=== PATIENT | female | born 1990 | race American Indian/Alaskan Native ===

== ENCOUNTER 2017-10-22 17:52 | Emergency (ER) | payer BC ==
[2017-10-22] MEDS ORDERED: DECADRON IM ONE (19:18)
[2017-10-22] MEDS ORDERED: REGLAN PO ONE (19:18)
[2017-10-22] MEDS ORDERED: BANOPHEN PO ONE (19:18)
[2017-10-22] MEDS ORDERED: ULTRAM PO ONE (19:18)
--- NOTE | 2017-10-22 19:40 | Emergency Department Report ---
ED Headache HPI - General Chief Complaint: Headache Stated Complaint: SEVERE MIGRAINE Time Seen by Provider: 10/22/17 19:15 - History of Present Illness Initial Comments: There is a 26-year-old FINNISH FEMALE WITH A HISTORY OF MIGRAINE HEADACHE visual headache management this Topamax 200 mg however out of medication patient state headache and usual location usual intensity and duration this headache started at work today with appears of photophobia and nausea vomiting headache 5 /10 at this time there is no decreased vision patient is tolerating by mouth patient Kirk to ED there is no dizziness or lightheadedness no neck pain Timing/Duration: 4-6 hours Quality: moderate, achy, sharp Head Injury Location: frontal Recent Head Trauma: no recent headache/trauma, frequent headaches, chronic headaches Associated Symptoms: nausea/vomiting. denies: confusion, fatigue, facial pain, fever/chills, flushing, loss of consciousness, nasal congestion, nasal drainage , numbness in legs/feet, rash, seizures, sinus infection, stiff neck, vision changes, weakness Allergies/Adverse Reactions: Allergies sulfamethoxazole [From Bactrim] Allergy (Verified 10/22/17 18:00) Unknown trimethoprim [From Bactrim] Allergy (Verified 10/22/17 18:00) Unknown butorphanol [From Stadol] Adverse Reaction (Verified 10/22/17 18:00) Unknown Home Medications: Ambulatory Orders Acetaminophen [Tylenol Extra Strength] 1,000 mg PO QID PRN #60 tablet 10/22/17 Amitriptyline [Elavil] 25 mg PO QHS #30 tab 10/22/17 Metoclopramide [Reglan] 10 mg PO ACHS #30 tablet 10/22/17 diphenhydrAMINE [Benadryl CAP] 25 mg PO Q6HR PRN #30 capsule 10/22/17 ED Review of Systems ROS: Stated complaint: SEVERE MIGRAINE Other details as noted in HPI Constitutional: denies: chills, fever Eyes: denies: eye pain, eye discharge, vision change ENT: denies: ear pain, throat pain Respiratory: denies: cough, shortness of breath, wheezing Cardiovascular: denies: chest pain, palpitations Endocrine: no symptoms reported Gastrointestinal: denies: abdominal pain, nausea, diarrhea Genitourinary: denies: urgency, dysuria, discharge Musculoskeletal: back pain Skin: denies: rash, lesions Neurological: headache. denies: weakness, numbness, paresthesias, confusion, abnormal gait, vertigo Psychiatric: denies: anxiety, depression Hematological/Lymphatic: as per HPI ED Past Medical Hx - Past Medical History Previous Medical History?: No Hx Asthma: Yes - Social History Smoking Status: Never Smoker - Medications Home Medications: Home Medications Medication Instructions Recorded Confirmed Last Taken Type Acetaminophen [Tylenol Extra 1,000 mg PO QID PRN #60 tablet 10/22/17 Unknown Rx Strength] Amitriptyline [Elavil] 25 mg PO QHS #30 tab 10/22/17 Unknown Rx Metoclopramide [Reglan] 10 mg PO ACHS #30 tablet 10/22/17 Unknown Rx diphenhydrAMINE [Benadryl CAP] 25 mg PO Q6HR PRN #30 capsule 10/22/17 Unknown Rx ED Physical Exam - General Limitations: No Limitations General appearance: alert, in no apparent distress - Head Head exam: Present: atraumatic, normocephalic, normal inspection - Eye Eye exam: Present: normal appearance, PERRL, EOMI. Absent: scleral icterus, conjunctival injection, periorbital swelling, periorbital tenderness Pupils: Present: normal accommodation - ENT ENT exam: Present: normal orophraynx, mucous membranes moist, TM's normal bilaterally, normal external ear exam - Neck Neck exam: Present: normal inspection, full ROM. Absent: tenderness, meningismus, lymphadenopathy, thyromegaly - Expanded Neck Exam Expanded Neck exam: Absent: tenderness, midline deformity, anterior neck swelling, thyroid mass, carotid bruit, tracheal deviation - Respiratory Respiratory exam: Present: normal lung sounds bilaterally. Absent: respiratory distress, wheezes, rhonchi, stridor, chest wall tenderness - Cardiovascular Cardiovascular Exam: Present: regular rate, normal rhythm. Absent: systolic murmur, diastolic murmur, rubs, gallop - GI/Abdominal GI/Abdominal exam: Present: soft, normal bowel sounds. Absent: distended, tenderness, guarding, rebound, rigid, organomegaly, mass, bruit, pulsatile mass , hernia - Rectal Rectal exam: Present: deferred - Extremities Exam Extremities exam: Present: normal inspection, full ROM. Absent: tenderness - Back Exam Back exam: Present: normal inspection, full ROM. Absent: tenderness - Neurological Exam Neurological exam: Present: alert, oriented X3, CN II-XII intact, normal gait, reflexes normal. Absent: motor sensory deficit - Expanded Neurological Exam Expanded Patient oriented to: Present: person, place, time Speech: Present: fluid speech Cranial nerves: EOM's Intact: Normal, Gag Reflex: Normal, Tongue Deviation: Normal, Nystagmus: Normal, Facial Sensation: Normal, Facial Palsy with Forehead Movement: Normal, Facial Palsy without Forehead Movement: Normal Cerebellar function: Finger to Nose: Normal, Heel to Castro: Normal, Romberg: Normal Upper motor neuron: Jayme Neglect: Normal, Pronator Drift: Normal, Babinski Sign : Normal, Sensory Extinction: Normal Sensory exam: Upper Extremity Light Touch: Normal, Upper Extremity Pin Prick: Normal, Upper Extremity Temperature: Normal, UE 2 Point Discrimination: Normal, Lower Extremity Light Touch: Normal, Lower Extremity Pin Prick: Normal, Lower Extremity Temperature: Normal, LE 2 Point Discrimination: Normal Motor strength exam: RUE: 5, LUE: 5, RLE: 5, LLE: 5 DTR: bicep (R): 2+, bicep (L): 2+, tricep (R): 2+, tricep (L): 2+, knee (R): 2+ , knee (L): 2+, ankle (R): 2+, ankle (L): 2+ Best Eye Response ([place]): (4) open spontaneously Best Motor Response ([place]): (6) obeys commands Best Verbal Response ([place]): (5) oriented [place] Total: 15 - Psychiatric Psychiatric exam: Present: normal affect - Skin Skin exam: Present: warm ED Course Vital Signs 10/22/17 17:57 Temperature 98.3 F Pulse Rate 94 H Respiratory 16 Rate Blood Pressure 131/75 O2 Sat by Pulse 100 Oximetry ED Medical Decision Making - Medical Decision Making This is patient's normal migraine headache pain is improved with medications given in ED plan DC the same plan refill amitriptyline S patient was prescribed amitriptyline at last PCP visit referred to [facility] for affiliation and follow-up treatment patient verbalizes understanding and agreement with discharge plan for DC to home in stable condition at this time headache is 2/10 patient is ambulatory a/o x 3 with no acute distress Critical care attestation.: If time is entered above; I have spent that time in minutes in the direct care of this critically ill patient, excluding procedure time. ED Disposition Clinical Impression: Headache Qualifiers: Headache type: unspecified Headache chronicity pattern: acute headache Intractability: not intractable Qualified Code(s): R51 - Headache Disposition: TO HOME OR SELFCARE Is pt being admited?: No Does the pt Need Aspirin: No Condition: Good Instructions: Acute Headache (ED) Prescriptions: Amitriptyline [Elavil] 25 mg PO QHS #30 tab Acetaminophen [Tylenol Extra Strength] 1,000 mg PO QID PRN #60 tablet PRN Reason: Headache diphenhydrAMINE [Benadryl CAP] 25 mg PO Q6HR PRN #30 capsule PRN Reason: Headache Metoclopramide [Reglan] 10 mg PO ACHS #30 tablet Referrals: PRIMARY CARE, [Primary Care Provider] - 3-5 Days [facility] [Outside] - 3-5 Days Time of Disposition: 19:52
[2017-10-22 20:34] VITALS: BP 130/73
== END 2017-10-22 20:34 | disposition home or self-care (01) ==
LOC: ED 17:52
DX: R51 Headache (principal); J45.909 Unspecified asthma, uncomplicated
CPT/HCPCS: 96372; 99282; J1100; Q0163

== ENCOUNTER 2017-12-27 10:34 | Emergency (ER) | payer BC ==
[2017-12-27 10:46] VITALS: BP 129/77
[2017-12-27] MEDS ORDERED: TORADOL IV ONE (12:47)
[2017-12-27] MEDS ORDERED: IMITREX SUB-Q ONE (12:47)
[2017-12-27] MEDS ORDERED: ZOFRAN IV ONE (12:47)
[2017-12-27] MEDS ORDERED: DECADRON IV ONE (12:47)
--- NOTE | 2017-12-27 12:52 | Emergency Department Report ---
ED Headache HPI - General Chief Complaint: Extremity Injury, Upper Stated Complaint: SEVERE MIGRAINE Time Seen by Provider: 12/27/17 12:46 Source: patient - History of Present Illness Initial Comments: Mrs. Hendrickson is 27 yo female who presents with migraine headaches. She has history of migraine headaches. She has recently moved from [place]. She is followed by a migraine specialist there. She did not have a lot of sleep this weekend. She was celebrating her birthday. She feels that this may have triggered her headache. She was prescribed amitriptyline on previous ED visit 2 months ago. Amitriptyline did not provide any relief. Gradual onset of global throbbing headache. Worse with light and sound. Positive nausea. Headache is typical of migraine for patient. She works at a [employer]. She lives with her . Last menstrual period within the last 2 months. Timing/Duration: 24 hours Quality: severe Head Injury Location: global Recent Head Trauma: frequent headaches, chronic headaches Modifying Factors: improves with: exposure to light Allergies/Adverse Reactions: Allergies sulfamethoxazole [From Bactrim] Allergy (Verified 12/27/17 10:46) Unknown trimethoprim [From Bactrim] Allergy (Verified 12/27/17 10:46) Unknown butorphanol [From Stadol] Adverse Reaction (Verified 12/27/17 10:46) Unknown Home Medications: Ambulatory Orders Acetaminophen [Tylenol Extra Strength] 1,000 mg PO QID PRN #60 tablet 10/22/17 Amitriptyline [Elavil] 25 mg PO QHS #30 tab 10/22/17 Metoclopramide [Reglan] 10 mg PO ACHS #30 tablet 10/22/17 diphenhydrAMINE [Benadryl CAP] 25 mg PO Q6HR PRN #30 capsule 10/22/17 SUMAtriptan SUCCINATE [Imitrex] 25 mg PO QDAY PRN #10 tablet 12/27/17 ED Review of Systems ROS: Stated complaint: SEVERE MIGRAINE Other details as noted in HPI Comment: All other systems reviewed and negative Constitutional: denies: fever, malaise Respiratory: denies: cough Cardiovascular: denies: chest pain ED Past Medical Hx - Past Medical History Hx Headaches / Migraines: Yes Hx Asthma: Yes - Surgical History Past Surgical History?: Yes Hx Appendectomy: Yes - Social History Smoking Status: Never Smoker Substance Use Type: Alcohol - Medications Home Medications: Home Medications Medication Instructions Recorded Confirmed Last Taken Type Acetaminophen [Tylenol Extra 1,000 mg PO QID PRN #60 tablet 10/22/17 Unknown Rx Strength] Amitriptyline [Elavil] 25 mg PO QHS #30 tab 10/22/17 Unknown Rx Metoclopramide [Reglan] 10 mg PO ACHS #30 tablet 10/22/17 Unknown Rx diphenhydrAMINE [Benadryl CAP] 25 mg PO Q6HR PRN #30 capsule 10/22/17 Unknown Rx SUMAtriptan SUCCINATE [Imitrex] 25 mg PO QDAY PRN #10 tablet 12/27/17 Unknown Rx ED Physical Exam - General Limitations: No Limitations General appearance: alert, in no apparent distress - Head Head exam: Present: atraumatic, normocephalic - Eye Eye exam: Present: normal appearance - ENT ENT exam: Present: mucous membranes moist - Neck Neck exam: Present: normal inspection. Absent: tenderness, meningismus - Respiratory Respiratory exam: Present: normal lung sounds bilaterally. Absent: respiratory distress, wheezes, rhonchi - Cardiovascular Cardiovascular Exam: Present: regular rate, normal rhythm, normal heart sounds. Absent: systolic murmur, diastolic murmur, rubs, gallop - GI/Abdominal GI/Abdominal exam: Present: soft, normal bowel sounds. Absent: distended, tenderness, guarding, rebound - Extremities Exam Extremities exam: Present: normal inspection - Back Exam Back exam: Present: normal inspection - Neurological Exam Neurological exam: Present: alert, oriented X3 - Psychiatric Psychiatric exam: Present: normal affect, normal mood - Skin Skin exam: Present: warm, dry, intact, normal color. Absent: rash ED Course Vital Signs 12/27/17 12/27/17 10:43 12:59 Temperature 98.4 F Pulse Rate 89 Respiratory 16 16 Rate Blood Pressure 129/77 O2 Sat by Pulse 100 Oximetry ED Medical Decision Making - Medical Decision Making Mrs. Hendrickson presents with migraine headache typical for patient. She received analgesia in the ED. Headache did greatly improve. I prescribed Imitrex. Critical care attestation.: If time is entered above; I have spent that time in minutes in the direct care of this critically ill patient, excluding procedure time. ED Disposition Clinical Impression: Migraine headache Disposition: - TO HOME OR SELFCARE Is pt being admited?: No Does the pt Need Aspirin: No Condition: Stable Instructions: Migraine Headache (ED) Prescriptions: SUMAtriptan SUCCINATE [Imitrex] 25 mg PO QDAY PRN #10 tablet PRN Reason: Headache Referrals: [facility] [Outside] - 3-5 Days Forms: Work/School Release Form(ED) Time of Disposition: 14:20
== END 2017-12-27 14:32 | disposition home or self-care (01) ==
LOC: ED 10:34
DX: G43.909 Migraine, unspecified, not intractable, without status migrainosus (principal); J45.909 Unspecified asthma, uncomplicated; Z90.49 Acquired absence of other specified parts of digestive tract; Z88.2 Allergy status to sulfonamides; Z88.8 Allergy status to other drugs, medicaments and biological substances
CPT/HCPCS: 96372; 96374; 96375; 99282; J1100; J1885; J2405; J3030

== ENCOUNTER 2018-02-07 16:38 | Emergency (ER) | payer BC, OTHER ==
[2018-02-07 16:53] VITALS: BP 126/83
[2018-02-07] MEDS ORDERED: MOTRIN PO ONE (17:55)
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
[2018-02-07] MEDS ORDERED: TYLENOL #3 PO ONE (19:43)
--- NOTE | 2018-02-07 19:59 | XRay Report ---
FINAL REPORT EXAM: XR SPINE CERVICAL 2-3V HISTORY: neck pain TECHNIQUE: Cervical spine five views PRIORS: None. FINDINGS: Vertebral bodies demonstrate normal height and alignment. The disk spaces are within normal limits. The facet joints demonstrate normal alignment. The spinous processes are intact. Craniocervical junction is unremarkable. C1 and C2 are intact. IMPRESSION: Negative cervical spine series.
== END 2018-02-07 20:10 | disposition home or self-care (01) ==
LOC: ED 16:38
DX: S13.4XXA Sprain of ligaments of cervical spine, initial encounter (principal); V89.2XXA Person injured in unspecified motor-vehicle accident, traffic, initial encounter; Y93.89 Activity, other specified; Y92.488 Other paved roadways as the place of occurrence of the external cause; Y99.8 Other external cause status
CPT/HCPCS: 72040; 99283

== ENCOUNTER 2018-05-18 17:54 | Emergency (ER) | payer SELFPAY ==
[2018-05-18 18:28] VITALS: BP 112/60
== END 2018-05-18 21:50 | disposition left against medical advice (07) ==
LOC: ED 17:54
DX: R11.10 Vomiting, unspecified (principal); Z53.21 Procedure and treatment not carried out due to patient leaving prior to being seen by health care provider

== ENCOUNTER 2018-08-26 22:00 | Emergency (ER) | payer SELFPAY | END 2018-08-26 22:44 | disposition left against medical advice (07) | LOC: ED 22:00 | DX: G43.909 Migraine, unspecified, not intractable, without status migrainosus (principal); Z53.21 Procedure and treatment not carried out due to patient leaving prior to being seen by health care provider ==

== ENCOUNTER 2021-03-26 12:55 | Emergency (ER) | payer SELFPAY ==
[2021-03-26] MEDS ORDERED: MORPHINE 4 MG/1 ML INJ IV ONE ×2 (14:32→16:25)
[2021-03-26] MEDS ORDERED: ONDANSETRON 4 MG/2 ML INJ IV ONE (14:32)
[2021-03-26 14:51] LABS: Basophils % (Auto) 0.2 % (0.0-1.8); Eosinophils # (Auto) 0.1 K/mm3 (0.0-0.4); Eosinophils % (Auto) 0.8 % (0.0-4.3); Hematocrit 34.9 % (30.3-42.9); Hemoglobin 10.9 gm/dl (10.1-14.3); Lymphocytes # (Auto) 2.1 K/mm3 (1.2-5.4); Lymphocytes % (Auto) 17.3 % (13.4-35.0); Mean Corpuscular HGB Conc 31 % (30-34); Mean Corpuscular Volume 86 fl (79-97); Monocytes # (Auto) 0.7 K/mm3 (0.0-0.8); Monocytes % (Auto) 5.7 % (0.0-7.3); Platelet Count 388 K/mm3 (140-440); Red Blood Count 4.06 M/mm3 (3.65-5.03); Red Cell Distribution Width 14.5 % (13.2-15.2)
--- NOTE | 2021-03-26 14:59 | Event Note ---
ED Screening Note Date of service: 03/26/21 Time: 14:58 ED Screening Note: Patient complains of sudden onset of severe right lower abdominal pain History of endometriosis, however states this does not feel like her endometriosis Pain is a 10/10 in severity Also states vaginal bleeding without discharge or dyspareunia No dysuria/hematuria Also has history of asthma This initial assessment/diagnostic orders/clinical plan/treatment(s) is/are subject to change based on patients health status, clinical progression and re- assessment by fellow clinical providers in the ED. Further treatment and workup at subsequent clinical providers discretion. Patient/guardian urged not to elope from the ED as their condition may be serious if not clinically assessed and managed. Initial orders include: Labs Meds CT
[2021-03-26 15:13] LABS: Alanine Aminotransferase 8 units/L (7-56); Albumin 4.1 g/dL (3.9-5); Blood Urea Nitrogen 5 mg/dL (7-17); Calcium 8.8 mg/dL (8.4-10.2); Hemolysis Index 3
[2021-03-26 15:16] LABS: BUN/Creatinine Ratio 7; Bilirubin,Direct < 0.2 mg/dL (0-0.2)
[2021-03-26 16:06] LABS: Bilirubin,Urine NEG (Negative); Blood,Urine LG (Negative); Color,Urine Red (Yellow); Mucus,Urine FEW /HPF; Urobilinogen,Urine < 2.0 mg/dL (<2.0)
[2021-03-26 16:07] LABS: RBC,Urine > 182.0 /HPF (0.0-6.0)
--- NOTE | 2021-03-26 17:08 | Cat Scan Report ---
CT abdomen pelvis w con INDICATION: acute lower abd pain, worse in RLQ 100 ml omni 300 . TECHNIQUE: All CT scans at this location are performed using CT dose reduction for ALARA by means of automated e xposure control. COMPARISON: None available. FINDINGS: The visualized lung bases are clear. The liver, gallbladder, adrenal glands, kidneys, pancreas, and spleen demonstrate no acute findings. Surgical clips adjacent to the cecum suggests previous appendectomy. There are no acute bowel abnorma lities. There is no free air. There is a 5 cm left ovarian cyst. The visualized osseous structures demonstrate no acute findings or aggressive appearing bone lesions. IMPRESSION: 1. No acute findings. 2. There is a 5 cm left ovarian cyst. Signer Name: Zach Sanchez MD Signed: 03/26/2021 5:03 PM Workstation Name: [id number]
--- NOTE | 2021-03-26 18:03 | Emergency Department Report ---
ED Abdominal Pain HPI - General Chief Complaint: Abdominal Pain Stated Complaint: ABD PAIN Time Seen by Provider: 03/26/21 17:12 Source: patient Mode of arrival: Ambulatory Limitations: No Limitations - History of Present Illness Initial Comments: 30-year-old female presents to ED with complaint of lower abdominal pain since last night. Patient states pain is across the suprapubic area, worse on the right side. Patient denies any nausea, vomiting, diarrhea, fever, vaginal discharge. Patient reports she is currently on her menstrual period, which started 3 days ago. Patient denies ever experiencing this pain previously. Patient states pain is worse when lying supine, walking, laughing. MD Complaint: abdominal pain -: Last night Location: RLQ, suprapubic Migration to: no migration Severity scale (0 -10): 5 Quality: sharp Consistency: intermittent Improves With: other (Immobilization) Worsens With: movement Associated Symptoms: denies: nausea, vomiting, diarrhea, fever, dysuria - Related Data LMP (females 10-50): this week Home Medications Medication Instructions Recorded Confirmed Last Taken ARIPiprazole [Abilify TAB] 5 mg PO DAILY 02/03/21 02/03/21 Unknown Albuterol Sulfate [Proventil Hfa] 2 puff IH Q4H PRN 02/03/21 02/03/21 Unknown Levothyroxine [Synthroid] 50 mcg PO QAM 02/03/21 02/03/21 Unknown Sertraline [Zoloft] 25 mg PO QDAY 02/03/21 02/03/21 Unknown Previous Rx's Medication Instructions Recorded Last Taken Type Naproxen [Naprosyn] 500 mg PO BID #20 tablet 03/26/21 Unknown Rx cephALEXin [Keflex] 500 mg PO Q12HR 5 Days #10 cap 03/26/21 Unknown Rx traMADoL [Ultram] 50 mg PO Q6HR PRN #7 tablet 03/26/21 Unknown Rx Allergies Allergy/AdvReac Type Severity Reaction Status Date / Time butorphanol [From Stadol] Allergy Itching Verified 03/26/21 13:01 sulfamethoxazole Allergy whelps Verified 03/26/21 13:01 [From Bactrim] trimethoprim [From Bactrim] Allergy whelps Verified 03/26/21 13:01 ED Review of Systems ROS: Stated complaint: ABD PAIN Other details as noted in HPI Comment: All other systems reviewed and negative Constitutional: denies: chills, fever Gastrointestinal: abdominal pain. denies: nausea, vomiting, diarrhea Genitourinary: denies: dysuria, frequency, hematuria, discharge ED Past Medical Hx - Past Medical History Hx Headaches / Migraines: Yes (Migraines) Hx Asthma: Yes (Last treatd 1 week ago) - Surgical History Hx Appendectomy: Yes - Social History Smoking Status: Never Smoker - Medications Home Medications: Home Medications Medication Instructions Recorded Confirmed Last Taken Type ARIPiprazole [Abilify TAB] 5 mg PO DAILY 02/03/21 02/03/21 Unknown History Albuterol Sulfate [Proventil Hfa] 2 puff IH Q4H PRN 02/03/21 02/03/21 Unknown History Levothyroxine [Synthroid] 50 mcg PO QAM 02/03/21 02/03/21 Unknown History Sertraline [Zoloft] 25 mg PO QDAY 02/03/21 02/03/21 Unknown History Naproxen [Naprosyn] 500 mg PO BID #20 tablet 03/26/21 Unknown Rx cephALEXin [Keflex] 500 mg PO Q12HR 5 Days #10 cap 03/26/21 Unknown Rx traMADoL [Ultram] 50 mg PO Q6HR PRN #7 tablet 03/26/21 Unknown Rx ED Physical Exam - General Limitations: No Limitations General appearance: alert, in no apparent distress - Head Head exam: Present: atraumatic, normocephalic - Eye Eye exam: Present: normal appearance, EOMI - ENT ENT exam: Present: mucous membranes moist - Neck Neck exam: Present: normal inspection - Respiratory Respiratory exam: Present: normal lung sounds bilaterally. Absent: respiratory distress - Cardiovascular Cardiovascular Exam: Present: regular rate, normal rhythm - GI/Abdominal GI/Abdominal exam: Present: soft, tenderness (Suprapubic, right lower quadrant tenderness). Absent: distended - Extremities Exam Extremities exam: Present: normal inspection - Neurological Exam Neurological exam: Present: alert, oriented X3 - Psychiatric Psychiatric exam: Present: normal affect, normal mood - Skin Skin exam: Present: warm, dry, intact, normal color ED Course Vital Signs 03/26/21 03/26/21 03/26/21 12:59 16:25 18:16 Temperature 98.4 F 98.0 F Pulse Rate 100 H 76 88 Respiratory 18 14 12 Rate Blood Pressure 136/75 100/61 133/65 [Left] O2 Sat by Pulse 100 99 100 Oximetry ED Medical Decision Making - Lab Data Result diagrams: 03/26/21 14:37 03/26/21 14:37 - Radiology Data Radiology results: report reviewed, image reviewed - Medical Decision Making Vital signs stable. CT negative except for left ovarian cyst. This is not consistent with patient's right-sided pain. UA shows evidence of UTI. Patient will be discharged at this time with prescriptions. She is currently eating chips and drinking soda. Outpatient follow-up advised, return precautions given. - Differential Diagnosis UTI, appendicitis, ovarian cyst Critical care attestation.: If time is entered above; I have spent that time in minutes in the direct care of this critically ill patient, excluding procedure time. ED Disposition Clinical Impression: Ovarian cyst, UTI (urinary tract infection), Abdominal pain Disposition: HOME / SELF CARE / HOMELESS Is pt being admited?: No Condition: Stable Instructions: Urinary Tract Infection, Adult, [id number], Abdominal Pain, Adult, [id number], Ovarian Cyst, [id number], Abdominal Pain (ED) Prescriptions: cephALEXin [Keflex] 500 mg PO Q12HR 5 Days #10 cap Naproxen [Naprosyn] 500 mg PO BID #20 tablet traMADoL [Ultram] 50 mg PO Q6HR PRN #7 tablet PRN Reason: Pain Referrals: JANESSA CASTILLO [Primary Care Provider] - 3-5 Days Time of Disposition: 18:03
[2021-03-26 18:17] VITALS: BP 133/65
== END 2021-03-26 18:16 | disposition home or self-care (01) ==
LOC: ED 12:55
DX: N83.201 Unspecified ovarian cyst, right side (principal); N39.0 Urinary tract infection, site not specified; Z79.899 Other long term (current) drug therapy
CPT/HCPCS: 36415; 74177; 80048; 80076; 81001; 83690; 84703; 85025; 87086; 96374; 96375; 96376; 99284; J2270; J2405; Q9967